=== PATIENT | male | born 2000 | race Caucasian/White ===

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

== ENCOUNTER 2023-03-02 05:35 | Emergency (ER) | payer BC ==
[~2023-03-02] VITALS: Ht 185.4 cm; Wt 83.9 kg
[2023-03-02 05:50] VITALS: BP_SYST 110
[2023-03-02] MEDS ORDERED: BACITRACIN 1 GM OINT TP ONE ×2 (06:15→07:48)
[2023-03-02] MEDS ORDERED: LIDOCAINE 2%, 20 ML MDV INJ ONE (06:15)
[2023-03-02] MEDS ORDERED: AMOXICILLIN/POTASSIUM CLAV 875 MG TABLET PO ONE (06:15)
[2023-03-02] MEDS ORDERED: HYDROcodone/ACETAMIN 5-325 MG TAB (NORCO/ VICODIN) PO ONE (06:15)
[2023-03-02] MEDS ORDERED: LIDOCAINE 1%, 20 ML MDV 20 ML ONE (06:35)
[2023-03-02] MEDS ORDERED: AUG875 PO (07:41)
[2023-03-02] MEDS ORDERED: ACET-2634 PO (07:41)
[2023-03-02] MEDS ORDERED: IBUP-1970 PO (07:41)
== END 2023-03-02 07:52 | disposition home or self-care (01) ==
LOC: SED 05:35
DX: S01.511A Laceration without foreign body of lip, initial encounter (principal); S01.551A Open bite of lip, initial encounter; Z79.899 Other long term (current) drug therapy; W54.0XXA Bitten by dog, initial encounter; Y93.89 Activity, other specified; Y92.89 Other specified places as the place of occurrence of the external cause; Y99.8 Other external cause status
CPT/HCPCS: 40650; 99284; J2001 ×2

== ENCOUNTER 2023-03-04 07:43 | Emergency (ER) | payer BC ==
[~2023-03-04] VITALS: Ht 180.3 cm; Wt 83.9 kg
[~2023-03-04 07:43] MED LIST: ACET-2634 PO; AUG875 PO; IBUP-1970 PO
--- NOTE | 2023-03-04 07:45 | NUR ---
Placed in room 07 . Placed on teletypesetter monitor, blood pressure machine and pulse oximeter. To gown for exam. Side rails up.
[2023-03-04 07:47] VITALS: BP_SYST 136
--- NOTE | 2023-03-04 07:55 | NUR ---
DR ÁLVAREZ IN ROOM FOR EXAM
[2023-03-04 07:59] VITALS: BP_SYST 136
--- NOTE | 2023-03-04 07:59 | NUR ---
Patient given written and verbal discharge instructions and verbalizes understanding. ER MD discussed with patient the results and treatment provided. Patient in stable condition. ID arm band removed.
== END 2023-03-04 07:59 | disposition home or self-care (01) ==
LOC: SED 07:43
DX: Z48.02 Encounter for removal of sutures (principal)
CPT/HCPCS: 99281

== ENCOUNTER → 2023-03-08 | Emergency (ER) | payer BC ==
[~2023-03-08] VITALS: Ht 170.2 cm; Wt 84.8 kg
[2023-03-08 18:40] VITALS: BP_SYST 107
[2023-03-08 19:02] VITALS: BP_SYST 117
== END | disposition home or self-care (01) ==
LOC: SED 18:30
DX: Z48.02 Encounter for removal of sutures (principal); Z79.899 Other long term (current) drug therapy
CPT/HCPCS: 99281